=== PATIENT | male | born 1945 | race Caucasian/White ===

== ENCOUNTER 2017-08-28 14:31 | Observation (INO) ==
[2017-08-28] MEDS ORDERED: 0.9 % Sodium Chloride 1,000 ML IVC ONE ×2 (14:53→15:30)
--- NOTE | 2017-08-28 14:53 | Emergency Department Note ---
Disposition Clinical Impression: Orthostatic hypotension, Renal insufficiency, Hypokalemia Syncopal episodes Qualifiers: Syncope type: unspecified Qualified Code(s): R55 - Syncope and collapse Disposition: Admitted As Inpatient Condition: Fair Time of Disposition: 17:17 General Adult HPI - General Chief complaint: ED General Medical Stated complaint: Hypotension Time Seen by Provider: 08/28/17 14:39 Source: patient, EMS Mode of arrival: EMS Limitations: no limitations Nursing Notes Reviewed: Yes Vital Signs Reviewed: Yes - History of Present Illness HPI Narrative: 71-year-old male history of hypertension presents an emergency department via EMS [facility] for [facility] and syncope. Patient states this morning prior to lunch he took his blood pressure medication. He was ready to eat lunch and next thing he knew he woke up to staff around him. He reports that they found his blood pressure was low and that he may have passed out. Reportedly he was caught and someone laid him down. He reportedly did not fall or strike his head. He has no obvious signs of trauma. He denies any pain at this time. He does feel low lightheaded but denies any dizziness. He denies any chest pain or shortness of breath. Denies history of cardiac ischemic disease. Denies any headache or neck pain. He takes 3 medications for his hypertension. Denies any recent changes to it. Lying to sitting up his blood pressure does drop. EMS reports when he was sat up he went unresponsive. [facility] a [facility] for his [facility], depression, and history of brain surgeries. Review of his medication list appears he takes amlodipine, hydralazine and lisinopril. Pain Scale: 0 - Related Data Allergies Allergy/AdvReac Type Severity Reaction Status Date / Time No Known Allergies Allergy Verified 08/28/17 14:37 All systems ED: reviewed and negative except as stated. Review of Systems: As Per HPI Constitutional: Denies: fever, chills, weakness ENT ED: Denies: congestion Cardiovascular: Denies: chest pain Respiratory: Denies: cough, dyspnea Gastrointestinal: Denies: abdominal pain, nausea, vomiting Genitourinary: Denies: urgency, dysuria Musculoskeletal: Denies: back pain, neck pain Neurological: Denies: headache, confusion, vertigo Past Medical History - Past Medical History Attestation: Yes The following information was validated with the patient. Source: patient, old records reviewed Medical history: Reports: hyperlipidemia, hypertension, other Psychiatric history: Reports: no psych history - Social History Smoking Status: Former smoker Alcohol use: Reports: none Drug use: Reports: none Physical Exam - General Limitations: no limitations General appearance: alert, in no apparent distress - Head Head exam: atraumatic, normocephalic, normal inspection - Eye Eye exam: Present: normal appearance, PERRL, EOMI. Absent: nystagmus - ENT ENT exam: normal exam, normal oropharynx, mucous membranes moist - Neck Neck exam: Present: normal inspection, full ROM, trachea midline. Absent: tenderness - Expanded Neck Exam Neck exam focused ED: Absent: midline tenderness - Chest Chest inspection: Present: normal inspection, symmetric chest wall rise - Respiratory Respiratory exam: Present: normal lung sounds bilaterally - Cardiovascular Cardiovascular exam: Present: normal rhythm, bradycardia, normal heart sounds, other (No murmurs with Valsalva). Absent: systolic murmur, diastolic murmur - Abdominal Exam Abdominal exam: Present: soft, Non-Tender, normal bowel sounds. Absent: tenderness, distention, guarding, rebound, rigidity, pulsatile mass - Extremities Exam Extremities exam: Present: normal inspection, full ROM, normal capillary refill. Absent: tenderness, pedal edema - Back Exam Back exam: Present: normal inspection, full ROM. Absent: tenderness, vertebral tenderness - Neurological Exam Neurological exam: Present: alert, oriented X3, CN II-XII intact - Expanded Neurological Exam Patient oriented to: Present: person, place, time Speech: Present: fluid speech Cranial nerves: EOM function (II, III, IV, ): Normal, facial sensation (V): Normal, facial palsy (VII): Normal, gag reflex (IX): Normal, spinal accessory function (XI): Normal, tongue deviation (XII): Normal Motor strength - LUE: 5/5 Motor strength - RUE: 5/5 Motor strength - LLE: 5/5 Motor strength - RLE: 5/5 Upper motor neuron exam: sharon neglect: Absent bilaterally, pronator drift: Absent bilaterally Sensory exam upper extremity: light touch: Normal Sensory exam lower extremity: light touch: Normal - Skin Skin exam: Present: warm, dry, intact, normal color. Absent: rash, cyanosis, diaphoresis Course Course Narrative: Patient presents hypotensive systolic anywhere from 60 to 80. He continues to be awake alert and oriented. Neurologic exam without any focal neural deficits. He denies any chest pain. EKG normal sinus rhythm with a prolonged OK interval as well as QTC. Patient will require full workup including a CT head and will get CT abdomen pelvis. Patient reports history of multiple surgeries in the head including coil. Will attempt to fluid resuscitated him as he appears to be responsive to position changes. Final disposition pending workup. - Reevaluation(s) Reevaluation #1: Spoke to the sister who is a power of rental sales representative. She provided some further history stating that patient has had 3 brain surgeries for tumors over 10 years ago. He has underlying dementia. [facility] for [facility]. The [facility] who takes care of the patient helps with his medications and there is no concern for medication error. Patient has otherwise been eating and drinking well. No history of any bleeding disorders. Parents had history of congestive heart failure she reports. No sudden deaths in the family. Review the patient' s labs shows a normal hemoglobin 12.9. His potassium is low at 2.9. Will replete his potassium here with 40 mEq. It appears patient takes supplementation at the [facility]. We will check and magnesium level as well. It appears he has some underlying renal insufficiency. Labs and records were obtained from the [facility] which did not provide any EKG or baseline creatinine. CT of the head was fairly unremarkable. There is some encephalomalacia from prior surgery Time: 16:29 Reevaluation #2: CT scan of the abdomen was fairly unremarkable. There is a lipoma that the patient has been are aware of for the past year. His magnesium came back 2.2. Patient feels significantly better after fluid hydration. His errand runner is now present in the room and states that a lpn private duty was with him talking to her when he slumped over and they were able to help him to the ground. [facility] was called. I was reaffirmed that no head trauma occurred. Again patient denies any headache or neck pain. He is feeling significantly better. He did report some lightheadedness when he stood up to avoid. Patient will require admission for further evaluation and workup for syncope and his orthostatic hypotension. He is being fluid responsive. Suspect possible dehydration component. Drapery Installer reports having 2 other residents brought in for dehydration. Will require further monitoring and management considering his EKG findings as well without prior cardiac history. Family and patient are in agreement with this plan. Time: 17:15 - Consultations Consultation #1: Spoke with on-call hospitalist samanta Guaman to admit for syncope and orthostatic hypotension possibly dehydration. No further orders at this time Time: 17:24 Vital Signs Temperature 98.9 F 08/28/17 14:37 Pulse Rate 53 08/28/17 14:37 Respiratory Rate 16 08/28/17 14:37 Blood Pressure 67/43 08/28/17 14:37 O2 Sat by Pulse Oximetry 96 08/28/17 14:37 Temperature 98.9 F 08/28/17 14:37 Pulse Rate 58 08/28/17 19:59 Respiratory Rate 18 08/28/17 19:59 Blood Pressure 103/56 08/28/17 19:59 O2 Sat by Pulse Oximetry 98 08/28/17 19:59 Oxygen Delivery Oxygen Delivery Nasal Cannula Medical Decision Making - MDM Narrative Medical decision making narrative: Patient was discussed with my attending physician who agrees with ED management and final disposition. They independently evaluated the patient. Please refer to their attestation to this encounter for additional information. This note was generated by [employer] voice recognition software and as a result grammatical or spelling errors may occur using this program. - Medical Records Medical records reviewed: Yes I reviewed the patient's medical records. - Lab Data Lab results reviewed: Yes I reviewed the patient's lab results. Result diagrams: 08/28/17 14:49 08/28/17 14:49 Lab Results 08/28/17 08/28/17 08/28/17 Range/Units 14:41 14:49 14:49 WBC 6.1 (4.3-11.1) K/mcL RBC 4.16 L (4.19-5.50) M/mcL Hgb 12.9 (12.9-16.9) g/dL Hct 36.5 L (37.5-50.1) % MCV 87.7 (83.0-100.0) fL MCH 31.0 (28.0-33.3) pg MCHC 35.3 (31.6-35.5) g/dL RDW 13.4 (11.5-14.5) % Plt Count 164 (140-400) K/mcL MPV 9.9 (9.4-12.4) fL Immature Gran % 0.3 (0-4) % Seg Neutrophils % 66.3 % Lymphocytes % 20.2 % Monocytes % 10.9 % Eosinophils % 1.6 % Basophils % 0.7 % Neutrophils # 4.1 (1.6-8.9) K/mcL Lymphocytes # 1.2 (0.6-4.6) K/mcL Monocytes # 0.7 (0.0-1.3) K/mcL Eosinophils # 0.1 (0.0-0.6) K/mcL Basophils # 0.0 (0.0-0.2) K/mcL Sodium 140 (136-145) mEq/L Potassium 2.9 L (3.5-5.1) mEq/L Chloride 104 (98-107) mEq/L Carbon Dioxide 29 (23-29) mEq/L BUN 19 (8-23) mg/dL Creatinine 1.54 H (0.70-1.30) mg/dL Est GFR ( Amer) 54 L (> 60) Est GFR (Non-Af Amer) 45 L (> 60) BUN/Creatinine Ratio 12 (6-26) Glucose 145 H (70-105) mg/dL POC Glucose 134 H (70-99) mg/dL Calculated Osmolality 295 (280-300) Lactic Acid (0.5-2.2) mmol/L Calcium 8.7 (8.6-10.3) mg/dL Magnesium (1.6-2.6) mg/dL Troponin I 0.03 (< 0.04) ng/mL Urine Color (Yellow) Urine Clarity (Clear) Urine pH (5.0-8.0) pH Units Ur Specific [place] (1.010-1.025) Urine Protein (Neg-Trace) mg/dL Urine Glucose (UA) (Normal) mg/dL Urine Ketones (Negative) mg/dL Urine Blood (Negative) Urine Nitrite (Negative) Urine Bilirubin (Negative) Urine Urobilinogen (Normal) mg/dL Ur Leukocyte Esterase (Negative) Urine Microscopic RBC (0-3) per hpf Urine Microscopic WBC (0-3) per hpf Ur Squamous Epith Cells (None-Few) per lpf Urine Bacteria (None-Few) per hpf Hyaline Casts (None-Few) per lpf Ur Culture Indicated? (NO) 08/28/17 08/28/17 08/28/17 Range/Units 16:13 16:13 16:55 WBC (4.3-11.1) K/mcL RBC (4.19-5.50) M/mcL Hgb (12.9-16.9) g/dL Hct (37.5-50.1) % MCV (83.0-100.0) fL MCH (28.0-33.3) pg MCHC (31.6-35.5) g/dL RDW (11.5-14.5) % Plt Count (140-400) K/mcL MPV (9.4-12.4) fL Immature Gran % (0-4) % Seg Neutrophils % % Lymphocytes % % Monocytes % % Eosinophils % % Basophils % % Neutrophils # (1.6-8.9) K/mcL Lymphocytes # (0.6-4.6) K/mcL Monocytes # (0.0-1.3) K/mcL Eosinophils # (0.0-0.6) K/mcL Basophils # (0.0-0.2) K/mcL Sodium (136-145) mEq/L Potassium (3.5-5.1) mEq/L Chloride (98-107) mEq/L Carbon Dioxide (23-29) mEq/L BUN (8-23) mg/dL Creatinine (0.70-1.30) mg/dL Est GFR ( Amer) (> 60) Est GFR (Non-Af Amer) (> 60) BUN/Creatinine Ratio (6-26) Glucose (70-105) mg/dL POC Glucose (70-99) mg/dL Calculated Osmolality (280-300) Lactic Acid 1.8 (0.5-2.2) mmol/L Calcium (8.6-10.3) mg/dL Magnesium 2.2 (1.6-2.6) mg/dL Troponin I (< 0.04) ng/mL Urine Color Dark Yellow (Yellow) Urine Clarity Slightly Hazy (Clear) Urine pH 6.5 (5.0-8.0) pH Units Ur Specific [place] 1.019 (1.010-1.025) Urine Protein 100 H (Neg-Trace) mg/dL Urine Glucose (UA) 100 H (Normal) mg/dL Urine Ketones Trace H (Negative) mg/dL Urine Blood Negative (Negative) Urine Nitrite Negative (Negative) Urine Bilirubin Small H (Negative) Urine Urobilinogen Normal (Normal) mg/dL Ur Leukocyte Esterase Large H (Negative) Urine Microscopic RBC 0-3 (0-3) per hpf Urine Microscopic WBC 30-50 H (0-3) per hpf Ur Squamous Epith Cells Few (None-Few) per lpf Urine Bacteria None Seen (None-Few) per hpf Hyaline Casts Few (None-Few) per lpf Ur Culture Indicated? YES A (NO) - Radiology Data Radiology results reviewed: Yes I reviewed the patient's radiology results. Chest X-Ray 08/28/17 14:40 IMPRESSION: No acute process. D/ / Arian Boyle MD / Arian Boyle MD Interpreting Provider: Arian Boyle MD Abdomen/Pelvis CT 08/28/17 15:30 IMPRESSION: 1. Enlarged prostate gland with a thickened bladder wall. This could be related to chronic outlet obstruction. 2. Atherosclerotic disease. 3. There is a 2.7 x 2.3 cm low-attenuation lesion in the right lobe of the liver. This has benign imaging features and no follow-up imaging is required. 4. 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 D/ / 08/28/2017 16:38:46 Jaime Jacobson MD / karthik Interpreting Provider: Jaime Jacobson MD Head CT 08/28/17 15:30 IMPRESSION: 1. No acute intracranial abnormality. 2. Mild age-appropriate diffuse atrophy with mild chronic small vessel ischemic changes. 3. Encephalomalacia in the right frontal lobe likely related to prior surgery given an overlying craniotomy. D/ / Rogelio Chester MD / Rogelio Chester MD Interpreting Provider: Rogelio Chester MD - EKG Data EKG #1 EKG attestation: Yes I reviewed and interpreted this EKG. EKG results narrative: EKG performed 1442 sinus bradycardia 57 bpm, Q waves in lead 3, OK interval 206 , no ST elevation or depression, QT QTC 476 471. There is no old EKG available for comparison at this time. No signs of Brugada pattern, delta waves or LVH. The QT interval is prolonged. Patient is on multiple antidepressant medications. Attestation Statement - Attestation Attestation: I, Casey Bledsoe DO, examined this patient [id number] and my medical decision-making was reviewed with Franky Saavedra DO , Resident Physician. I agree with the documented findings, disposition and treatment plan as described except to the extent set forth below. Please see my progress notes for details.
[2017-08-28 15:03] LABS: Basophils % 0.7 %; Eosinophils # 0.1 K/mcL (0.0-0.6); Eosinophils % 1.6 %; Hematocrit 36.5 % (37.5-50.1); Hemoglobin 12.9 g/dL (12.9-16.9); Immature Granulocytes % 0.3 % (0-4); Lymphocytes # 1.2 K/mcL (0.6-4.6); Lymphocytes % 20.2 %; Mean Corpuscular HGB Conc 35.3 g/dL (31.6-35.5); Mean Corpuscular Volume 87.7 fL (83.0-100.0); Mean Platelet Volume 9.9 fL (9.4-12.4); Monocytes # 0.7 K/mcL (0.0-1.3); Monocytes % 10.9 %; Neutrophils # 4.1 K/mcL (1.6-8.9); Platelet Count 164 K/mcL (140-400); Red Blood Count 4.16 M/mcL (4.19-5.50); Red Cell Distribution Width 13.4 % (11.5-14.5); Segmented Neutrophils % 66.3 %
[2017-08-28 15:29] LABS: Calcium 8.7 mg/dL (8.6-10.3); Potassium 2.9 mEq/L (3.5-5.1); Troponin I 0.03 ng/mL (< 0.04)
--- NOTE | 2017-08-28 15:47 | Emergency Department Note ---
Disposition Clinical Impression: Orthostatic hypotension Syncopal episodes Qualifiers: Syncope type: unspecified Qualified Code(s): R55 - Syncope and collapse Disposition: Admitted As Inpatient Condition: Fair [facility]Primary Care Provider[facility] - Forms: ED Satisfaction Letter, Work/School Release Time of Disposition: 17:28 General Adult HPI - General Chief complaint: ED General Medical Stated complaint: Hypotension Time Seen by Provider: 08/28/17 14:39 Source: patient, EMS Mode of arrival: EMS Limitations: no limitations - History of Present Illness Pain Scale: 0 - Related Data Allergies Allergy/AdvReac Type Severity Reaction Status Date / Time No Known Allergies Allergy Verified 08/28/17 14:37 Constitutional: Denies: fever, chills, weakness ENT ED: Denies: congestion Cardiovascular: Denies: chest pain Respiratory: Denies: cough, dyspnea Gastrointestinal: Denies: abdominal pain, nausea, vomiting Genitourinary: Denies: urgency, dysuria Musculoskeletal: Denies: back pain, neck pain Neurological: Denies: headache, confusion, vertigo Past Medical History - Past Medical History Medical history: Reports: hyperlipidemia, hypertension, other Psychiatric history: Reports: no psych history - Social History Smoking Status: Former smoker Alcohol use: Reports: none Drug use: Reports: none Physical Exam - General Limitations: no limitations General appearance: alert, in no apparent distress Course Vital Signs Temperature 98.9 F 08/28/17 14:37 Pulse Rate 53 08/28/17 14:37 Respiratory Rate 16 08/28/17 14:37 Blood Pressure 67/43 08/28/17 14:37 O2 Sat by Pulse Oximetry 96 08/28/17 14:37 Temperature 98.9 F 08/28/17 14:37 Pulse Rate 81 08/28/17 16:46 Respiratory Rate 14 08/28/17 16:46 Blood Pressure 122/74 08/28/17 16:46 O2 Sat by Pulse Oximetry 99 08/28/17 16:46 Oxygen Delivery Oxygen Delivery Nasal Cannula Medical Decision Making - Lab Data Result diagrams: 08/28/17 14:49 08/28/17 14:49 Lab Results 08/28/17 08/28/17 08/28/17 Range/Units 14:41 14:49 14:49 WBC 6.1 (4.3-11.1) K/mcL RBC 4.16 L (4.19-5.50) M/mcL Hgb 12.9 (12.9-16.9) g/dL Hct 36.5 L (37.5-50.1) % MCV 87.7 (83.0-100.0) fL MCH 31.0 (28.0-33.3) pg MCHC 35.3 (31.6-35.5) g/dL RDW 13.4 (11.5-14.5) % Plt Count 164 (140-400) K/mcL MPV 9.9 (9.4-12.4) fL Immature Gran % 0.3 (0-4) % Seg Neutrophils % 66.3 % Lymphocytes % 20.2 % Monocytes % 10.9 % Eosinophils % 1.6 % Basophils % 0.7 % Neutrophils # 4.1 (1.6-8.9) K/mcL Lymphocytes # 1.2 (0.6-4.6) K/mcL Monocytes # 0.7 (0.0-1.3) K/mcL Eosinophils # 0.1 (0.0-0.6) K/mcL Basophils # 0.0 (0.0-0.2) K/mcL Sodium 140 (136-145) mEq/L Potassium 2.9 L (3.5-5.1) mEq/L Chloride 104 (98-107) mEq/L Carbon Dioxide 29 (23-29) mEq/L BUN 19 (8-23) mg/dL Creatinine 1.54 H (0.70-1.30) mg/dL Est GFR ( Amer) 54 L (> 60) Est GFR (Non-Af Amer) 45 L (> 60) BUN/Creatinine Ratio 12 (6-26) Glucose 145 H (70-105) mg/dL POC Glucose 134 H (70-99) mg/dL Calculated Osmolality 295 (280-300) Lactic Acid (0.5-2.2) mmol/L Calcium 8.7 (8.6-10.3) mg/dL Magnesium (1.6-2.6) mg/dL Troponin I 0.03 (< 0.04) ng/mL Urine Color (Yellow) Urine Clarity (Clear) Urine pH (5.0-8.0) pH Units Ur Specific [place] (1.010-1.025) Urine Protein (Neg-Trace) mg/dL Urine Glucose (UA) (Normal) mg/dL Urine Ketones (Negative) mg/dL Urine Blood (Negative) Urine Nitrite (Negative) Urine Bilirubin (Negative) Urine Urobilinogen (Normal) mg/dL Ur Leukocyte Esterase (Negative) Urine Microscopic RBC (0-3) per hpf Urine Microscopic WBC (0-3) per hpf Ur Squamous Epith Cells (None-Few) per lpf Urine Bacteria (None-Few) per hpf Hyaline Casts (None-Few) per lpf Ur Culture Indicated? (NO) 08/28/17 08/28/17 08/28/17 Range/Units 16:13 16:13 16:55 WBC (4.3-11.1) K/mcL RBC (4.19-5.50) M/mcL Hgb (12.9-16.9) g/dL Hct (37.5-50.1) % MCV (83.0-100.0) fL MCH (28.0-33.3) pg MCHC (31.6-35.5) g/dL RDW (11.5-14.5) % Plt Count (140-400) K/mcL MPV (9.4-12.4) fL Immature Gran % (0-4) % Seg Neutrophils % % Lymphocytes % % Monocytes % % Eosinophils % % Basophils % % Neutrophils # (1.6-8.9) K/mcL Lymphocytes # (0.6-4.6) K/mcL Monocytes # (0.0-1.3) K/mcL Eosinophils # (0.0-0.6) K/mcL Basophils # (0.0-0.2) K/mcL Sodium (136-145) mEq/L Potassium (3.5-5.1) mEq/L Chloride (98-107) mEq/L Carbon Dioxide (23-29) mEq/L BUN (8-23) mg/dL Creatinine (0.70-1.30) mg/dL Est GFR ( Amer) (> 60) Est GFR (Non-Af Amer) (> 60) BUN/Creatinine Ratio (6-26) Glucose (70-105) mg/dL POC Glucose (70-99) mg/dL Calculated Osmolality (280-300) Lactic Acid 1.8 (0.5-2.2) mmol/L Calcium (8.6-10.3) mg/dL Magnesium 2.2 (1.6-2.6) mg/dL Troponin I (< 0.04) ng/mL Urine Color Dark Yellow (Yellow) Urine Clarity Slightly Hazy (Clear) Urine pH 6.5 (5.0-8.0) pH Units Ur Specific [place] 1.019 (1.010-1.025) Urine Protein 100 H (Neg-Trace) mg/dL Urine Glucose (UA) 100 H (Normal) mg/dL Urine Ketones Trace H (Negative) mg/dL Urine Blood Negative (Negative) Urine Nitrite Negative (Negative) Urine Bilirubin Small H (Negative) Urine Urobilinogen Normal (Normal) mg/dL Ur Leukocyte Esterase Large H (Negative) Urine Microscopic RBC 0-3 (0-3) per hpf Urine Microscopic WBC 30-50 H (0-3) per hpf Ur Squamous Epith Cells Few (None-Few) per lpf Urine Bacteria None Seen (None-Few) per hpf Hyaline Casts Few (None-Few) per lpf Ur Culture Indicated? YES A (NO) Critical Care Time Critical Care Time: Yes Total Critical Care Time: 35 Attestation: Critical care performed: Time is exclusive of separately billable procedures. Time includes: direct patient care, patient reassessment, coordination of patient care, interpretation of data (laboratory data, radiology data, and respiratory data), review of patient's medical records, medical consultation and documentation of patient care. Procedures included in critical care time: Procedures excluded from critical care time: Attestation Statement - Attestation Attestation: I, Casey Bledsoe DO, examined this patient [id number] and my medical decision-making was reviewed with Franky Saavedra DO Resident Physician. I agree with the documented findings, disposition and treatment plan as described except to the extent set forth below. Please see my progress notes for details. 71-year-old male presents emergency room for evaluation of decreased responsiveness. EMS was called to the patient's [facility] [facility]. Patient was found at the kitchen table unresponsive. His blood pulses but his blood pressure was low. EMS can Accu-Chek 180 and a blood pressure of 65/35. Patient was placed on a cotton IV was obtained. Fluids were administered. Patient's blood pressure normalized to 106/95 and he started to wake up. Patient denied any fall or injury. Patient was found sitting in the chair. On arrival here to the emergency room is currently denying chest pain shortness of breath headache vision changes nausea vomiting or diarrhea. Denies any fevers or chills. Denies any recent falls or injury. 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 This was intracranial. On physical exam patient is resting comfortably in the bed is alert he is oriented he speaks in full sentences she does not appear to be in any distress. When he set the patient up abruptly he becomes very lightheaded and feels like he is going to pass out his blood pressure bottoms out and he becomes slightly somnolent. The patient is lying flat he has no symptoms. Bedside ultrasound was utilized to evaluate the aorta and the heart. Bedside cardiac evaluation was unremarkable. No signs of left ventricular strain or signs of deviation of the septum. Aorta was evaluated in 3 different positions 1 just below the xiphoid 1 just above the umbilicus and one below the umbilicus. There is no visible signs of dilation or aneurysmal presentation this time. Patient has no free fluid in the abdomen. Lungs are clear heart is regular abdomen is soft nontender nondistended no guarding no rigidity no peritoneal symptoms. 2 IVs were placed at this 0.2 L of fluid will be infused. Detailed workup including CBC chemistry urinalysis coagulation studies as well as CT that CT the abdomen chest x-ray and EKG will be resulted. Patient will require admission once full workup and treatment course are established and completed. Otherwise the patient is stable this point mentating appropriately his nausea is lying flat. Presentation is initially consistent with orthostasis. See detailed documentation of the physical exam, medical intervention, medical decision- making and disposition in the resident physician's note. 35 minutes of critical care applied the patient's treatment course at this time. 1700 Patient's labs reviewed. Hemoglobin is stable. Patient has low potassium at this time. This will be repleted by mouth. Patient has CT the head that is unremarkable for acute pathology as well as CT the abdomen and does not show any acute issues at this point. Patient's labs as well as vital signs have been stable throughout the treatment course. Patient was fluid responsive. No other acute issues noted during this evaluation of this time except for what appears to be orthostasis causing hypotension and syncopal event. Patient will be admitted for further evaluation and management and disposition to be determined after hospital observation is completed. Patient is otherwise stable. 1736 Patient was accepted by the hospitalist. No other recommendations or concerns. Patient is more stable at this point feeling more able to stand on his own and sit upright without any dizziness or symptoms. Admission process will be completed at this time for what appears to be orthostasis causing syncope and hypotension
[2017-08-28] MEDS ORDERED: Pantoprazole 40 MG VIAL IVP ONE (16:12)
[2017-08-28] MEDS ORDERED: Pantoprazole 40 MG in 0.9 % Sodium Chloride Mini Bag 100 ML IVC SCH (16:15)
[2017-08-28 17:04] LABS: Bilirubin,Urine Small (Negative); Blood,Urine Negative (Negative); Color,Urine Dark Yellow (Yellow); Glucose,Urine (UA) 100 mg/dL (Normal); Ketones,Urine Trace mg/dL (Negative); Leukocyte Esterase,Urine Large (Negative); Nitrite,Urine Negative (Negative); PH,Urine 6.5 pH Units (5.0-8.0); Protein,Urine 100 mg/dL (Neg-Trace); Specific Gravity,Urine 1.019 (1.010-1.025); Urobilinogen,Urine Normal (Normal)
[2017-08-28 17:06] LABS: Bacteria,Urine None Seen per hpf (None-Few)
[2017-08-28 17:07] LABS: Clarity,Urine Slightly Hazy (Clear)
[2017-08-28 17:21] LABS: Hyaline Casts,Urine Few per lpf (None-Few); Squamous Epithelial Cell,Urine Few per lpf (None-Few)
[2017-08-28 17:22] LABS: RBC,Urine 0-3 per hpf (0-3)
[2017-08-28 17:23] LABS: WBC,Urine 30-50 per hpf (0-3)
[2017-08-28] MEDS ORDERED: Ipratropium/Albuterol Neb 3 ML IH PRN (17:50)
[2017-08-28] MEDS ORDERED: *HR* LORazepam 0.5 MG TABLET PO PRN (17:52)
[2017-08-28] MEDS ORDERED: Naloxone 0.4 MG/ML INJ IVP PRN (17:53)
[2017-08-28] MEDS ORDERED: *HR* HYDROcodone/Acet 5/325 mg TABLET PO PRN (17:53)
[2017-08-28] MEDS ORDERED: Acetaminophen 325 MG TABLET PO PRN (17:53)
--- NOTE | 2017-08-28 17:58 | Internal Med History&Physical ---
Date of Encounter: 08/28/17 Time of Encounter: 17:56 Internal Medicine - H&P: HPI Chief complaint: Syncope Admitted From: Emergency Dept History of present illness: Mr. Aguilar is a 71 year old male with a past medical history of hypertension, hyperlipidemia, craniectomy, chronic kidney disease stage III and dementia who was brought to the hospital after having a witnessed syncopal episode, but the patient was out for 20 minutes, he does not remember what happened, his blood pressure was in the low 60s and improved to the 120s after receiving fluids. His potassium was found to be low at 2.9 creatinine is 1.54 and has a baseline of 1.23, appears dehydrated, glucose is 145, the UA is positive for 50 white blood cells in the CT scan of the abdomen shows an enlarged prostate with thickening of the bladder wall compatible with cystitis, liver lesion likely benign and a gastric lipoma. CT scan shows no acute findings and showed right frontal encephalomalacia. 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, dementia, chronic kidney disease of stage III, gout, anxiety) Additional medical history: unable to state Psychiatric history: no psych history - Past Surgical History Surgical History: other (Craniectomy, pilonidal cyst excision) - Social History Smoking Status: Never smoker Alcohol use: none Drug use: none - Additional Family History Additional family history: Mother and father with CHF Internal Medicine - H&P: Meds 3 Allergy/AdvReac Type Severity Reaction Status Date / Time No Known Allergies Allergy Verified 08/28/17 14:37 All Systems PM: A 10-system review of systems was performed and is negative for pertinent findings except as documented above in the HPI. Review of systems: , Feels weak, other systems out of the 10 reviewed were negative - Constitutional Vitals: Temp Pulse Resp BP Pulse Ox 98.9 F 81 14 122/74 99 08/28/17 14:37 08/28/17 16:46 08/28/17 16:46 08/28/17 16:46 08/28/17 16:46 General appearance: Present: A&O X 3 (Forgetful at times) - Head Head exam: Present: atraumatic, normocephalic - Eye Eye exam: Present: PERRL, conjuntiva pink, sclera anicteric Pupils: Present: PERRL - Neck Neck exam general surgery: Present: supple, trachea midline. Absent: lymphadenopathy - Respiratory Respiratory exam: Present: decreased breath sounds, CTAB. Absent: accessory muscle use, rales, rhonchi, wheezes - Cardiovascular Cardiovascular exam: Present: RRR, +S1, +S2. Absent: diastolic murmur, gallop, rubs, systolic murmur - GI/Abdominal GI/Abdominal exam: Present: distended, normal bowel sounds, soft, no peritoneal signs. Absent: tenderness - Extremities Exam Extremities exam: Present: warm, radial pulses palpable and symmetrical. Absent : calf tenderness, cyanotic, pedal edema - Neurological Exam Neurological exam: Present: CN II-XII intact, oriented X3, no focal deficits. Absent: pronater drift, facial droop, speech deficit - Skin Skin exam: Present: dry, intact Internal Med - H&P Results - Labs CBC & Chem 7: 08/28/17 14:49 08/28/17 14:49 Labs: Short CBC 08/28/17 Range/Units 14:49 WBC 6.1 (4.3-11.1) K/mcL Hgb 12.9 (12.9-16.9) g/dL Hct 36.5 L (37.5-50.1) % Plt Count 164 (140-400) K/mcL Neutrophils # 4.1 (1.6-8.9) K/mcL BMP 08/28/17 14:49 Sodium 140 Potassium 2.9 L Chloride 104 Carbon Dioxide 29 BUN 19 Creatinine 1.54 H Glucose 145 H Calcium 8.7 Cardiac Enzymes 08/28/17 Range/Units 14:49 Troponin I 0.03 (< 0.04) ng/mL Urine 08/28/17 Range/Units 16:55 Urine Color Dark Yellow (Yellow) Urine Clarity Slightly Hazy (Clear) Urine pH 6.5 (5.0-8.0) pH Units Ur Specific [place] 1.019 (1.010-1.025) Urine Protein 100 H (Neg-Trace) mg/dL Urine Glucose (UA) 100 H (Normal) mg/dL - Impressions ITS Impressions Chest X-Ray 08/28/17 14:40 IMPRESSION: No acute process. D/ / Arian Boyle MD / Arian Boyle MD Interpreting Provider: Arian Boyle MD Abdomen/Pelvis CT 08/28/17 15:30 IMPRESSION: 1. Enlarged prostate gland with a thickened bladder wall. This could be related to chronic outlet obstruction. 2. Atherosclerotic disease. 3. There is a 2.7 x 2.3 cm low-attenuation lesion in the right lobe of the liver. This has benign imaging features and no follow-up imaging is required. 4. 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 D/ / 08/28/2017 16:38:46 Jaime Jacobson MD / karthik Interpreting Provider: Jaime Jacobson MD Head CT 08/28/17 15:30 IMPRESSION: 1. No acute intracranial abnormality. 2. Mild age-appropriate diffuse atrophy with mild chronic small vessel ischemic changes. 3. Encephalomalacia in the right frontal lobe likely related to prior surgery given an overlying craniotomy. D/ / Rogelio Chester MD / Rogelio Chester MD Interpreting Provider: Rogelio Chester MD - Assessment and plan (1) Syncopal episodes Current Visit: Yes Status: Acute Assessment and plan: Syncopal episode likely secondary to dehydration, possible orthostatic hypotension, also could be related to UTI Continue Rocephin, IV fluids Check orthostatics Fall precautions, telemetry, echocardiogram Hold lisinopril, hydralazine and amlodipine Omeprazole for GI prophylaxis and subcutaneous tenderness heparin for DVT prophylaxis. The patient will be admitted for observation. Full code. Time spent on this admission 40 minutes Qualifiers: Syncope type: unspecified Qualified Code(s): R55 - Syncope and collapse (2) Chronic kidney disease, stage 3 Current Visit: Yes Status: Acute Assessment and plan: dehydration Continue (3) UTI (urinary tract infection) Current Visit: Yes Status: Acute Assessment and plan: Urine culture Qualifiers: Urinary tract infection type: acute cystitis Hematuria presence: without hematuria Qualified Code(s): N30.00 - Acute cystitis without hematuria (4) Dementia Current Visit: Yes Status: Acute Qualifiers: Dementia type: unspecified type Dementia behavioral disturbance: without behavioral disturbance Qualified Code(s): F03.90 - Unspecified dementia without behavioral disturbance (5) Hypotension Current Visit: Yes Status: Acute Qualifiers: Hypotension type: unspecified hypotension type Qualified Code(s): I95.9 - Hypotension, unspecified (6) Hypokalemia Current Visit: Yes Status: Acute Assessment and plan: Replete as needed (7) Orthostatic hypotension Current Visit: Yes Status: Acute Assessment and plan: Possible orthostatic hypotension - Time Spent With Patient Total time spent is greater than 50% in coordination of care (as documented) at patient's floor/unit and/or counseling patient:
[2017-08-28] MEDS: *HR* Heparin 5,000 UNIT/ML VIAL SQ SCH (20:48)
[2017-08-28] MEDS: cefTRIAXone 1,000 MG in Water for inj. (sterile) 20 ML 10 ML IVP SCH (20:48)
[2017-08-29] MEDS: *HR* Heparin 5,000 UNIT/ML VIAL SQ SCH ×3 (05:35→20:38)
[2017-08-29] MEDS ORDERED: hydrALAZINE 25 MG TABLET PO SCH (06:00)
[2017-08-29] MEDS ORDERED: hydrALAZINE 25 MG TABLET PO PRN (06:07)
[2017-08-29 07:54] LABS: BUN/Creatinine Ratio 15 (6-26); Blood Urea Nitrogen 17 mg/dL (8-23); Calcium 8.7 mg/dL (8.6-10.3); Carbon Dioxide 30 mEq/L (23-29); Chloride 111 mEq/L (98-107); Chol/HDL Ratio 4.9 (0-4.9); Cholesterol 137 mg/dL (< 200); Glucose 86 mg/dL (70-105); HDL Cholesterol 28 mg/dL (40-59); LDL Cholesterol,Calculated 87 mg/dL (0-99); Osmolality,Calculated 303 (280-300); Sodium 146 mEq/L (136-145); Triglycerides 111 mg/dL (< 150); eGFR For African Americans > 60 (> 60); eGFR For Non-African Americans > 60 (> 60)
[2017-08-29 08:04] LABS: Hematocrit 39.6 % (37.5-50.1); Hemoglobin 13.5 g/dL (12.9-16.9); Mean Corpuscular HGB Conc 34.1 g/dL (31.6-35.5); Mean Corpuscular Hemoglobin 30.3 pg (28.0-33.3); Mean Platelet Volume 10.5 fL (9.4-12.4); Platelet Count 150 K/mcL (140-400); Red Blood Count 4.45 M/mcL (4.19-5.50); Red Cell Distribution Width 13.8 % (11.5-14.5)
[2017-08-29] MEDS ORDERED: Aspirin Enteric Coated 81 MG Tablet PO SCH (09:00)
[2017-08-29] MEDS ORDERED: LORAZEPAM 0.5 MG PO SCH (09:00)
[2017-08-29] MEDS: amLODIPine 5 MG TABLET PO SCH (09:30)
[2017-08-29] MEDS: traZODone 50 MG TABLET PO SCH ×2 (09:30→20:37)
[2017-08-29] MEDS: Aspirin Enteric Coated 81 MG Tablet PO SCH (09:31)
[2017-08-29] MEDS: Lisinopril 20 MG TABLET PO SCH (09:31)
[2017-08-29] MEDS: cefTRIAXone 1,000 MG in Water for inj. (sterile) 20 ML 10 ML IVP SCH (09:31)
[2017-08-29] MEDS: Tetrahydrozoline 15 ML BOTTLE BOTH EYES SCH ×4 (09:33→20:53)
--- NOTE | 2017-08-29 15:12 | Internal Med Progress Note ---
Date of Encounter: 08/29/17 Time of Encounter: 09:25 - Assessment and plan (1) Syncopal episodes Current Visit: Yes Status: Acute Assessment and plan: Syncopal episode likely secondary to dehydration, possible orthostatic hypotension, also could be related to UTI. Continue Rocephin, IV fluids. Fall precautions and supportive care. Transthoracic echocardiogram showed preserved EF, asymmetric basal septal hypertrophy, no LV outlet obstruction, mild diastolic dysfunction. Telemetry monitoring remained uneventful. Patient's blood pressure is improved and is elevated, resume home medications. Qualifiers: Syncope type: unspecified Qualified Code(s): R55 - Syncope and collapse (2) Orthostatic hypotension Current Visit: Yes Status: Acute Assessment and plan: Possible orthostatic hypotension (3) Hypokalemia Current Visit: Yes Status: Acute Assessment and plan: Serum potassium slightly improved at 3. Magnesium noted to be normal. Supplement with oral potassium chloride. (4) Chronic kidney disease, stage 3 Current Visit: Yes Status: Acute Assessment and plan: Admitted with acute kidney injury on underlying chronic kidney disease, likely due to dehydration. Serum creatinine is much improved with IV hydration, at 1.13 today. (5) UTI (urinary tract infection) Current Visit: Yes Status: Acute Assessment and plan: Urinalysis suggestive of infection, follow-up urine culture. Continue IV Rocephin. Qualifiers: Urinary tract infection type: acute cystitis Hematuria presence: without hematuria Qualified Code(s): N30.00 - Acute cystitis without hematuria (6) Dementia Current Visit: Yes Status: Chronic Qualifiers: Dementia type: unspecified type Dementia behavioral disturbance: without behavioral disturbance Qualified Code(s): F03.90 - Unspecified dementia without behavioral disturbance (7) Hypotension Current Visit: Yes Status: Resolved Qualifiers: Hypotension type: unspecified hypotension type Qualified Code(s): I95.9 - Hypotension, unspecified - Time Spent With Patient Total time spent is greater than 50% in coordination of care (as documented) at patient's floor/unit and/or counseling patient: - Subjective Interval history: Reports feeling well. Denies chest pain, shortness of breath, palpitations, nausea, vomiting. He also reports multiple episodes of unexplained syncope in the past. - Constitutional Vitals: Temp Pulse Resp BP Pulse Ox 97.7 F 61 18 155/85 99 08/29/17 11:21 08/29/17 11:21 08/29/17 11:21 08/29/17 11:21 08/29/17 11:21 General appearance: Present: A&O X 3, answers questions appropriately - Respiratory Respiratory exam: Present: CTAB. Absent: accessory muscle use, rales, rhonchi, wheezes - Cardiovascular Cardiovascular exam: Present: RRR, +S1, +S2. Absent: diastolic murmur, gallop, rubs, systolic murmur - GI/Abdominal GI/Abdominal exam: Present: normal bowel sounds, soft, no peritoneal signs. Absent: distended, tenderness - Extremities Exam Extremities exam: Present: full ROM, warm, radial pulses palpable and symmetrical. Absent: calf tenderness, cyanotic, pedal edema - Neurological Exam Neurological exam: Present: CN II-XII intact, oriented X3, no focal deficits. Absent: pronater drift, facial droop, speech deficit Internal Medicine: Result - Labs CBC & Chem 7: 08/29/17 06:53 08/29/17 06:53 Labs: Short CBC 08/29/17 Range/Units 06:53 WBC 6.5 (4.3-11.1) K/mcL Hgb 13.5 (12.9-16.9) g/dL Hct 39.6 (37.5-50.1) % Plt Count 150 (140-400) K/mcL BMP 08/29/17 06:53 Sodium 146 H Potassium 3.0 L Chloride 111 H Carbon Dioxide 30 H BUN 17 Creatinine 1.13 Glucose 86 Calcium 8.7 - Impressions Impressions Echocardiogram 08/29/17 17:56 Impressions: LVEF 60%. Asymmetric basal septal hypertrophy. No LVOTO. Mild left ventricular diastolic dysfunction. Normal right ventricular structure and function. No pulmonary hypertension. Left Ventricular Wall Motion: Rest Echo Findings All wall segments showed normal motion. Findings: Study Quality * Technically adequate exam. ECG Findings * Normal sinus rhythm. Left Ventricle * LVEF 60%. * Asymmetric basal septal hypertrophy. No LVOTO. * Mild left ventricular diastolic dysfunction. * Normal LV chamber size. Right Ventricle * Normal right ventricular structure and function. Left Atrium * Normal left atrial size. Right Atrium * Normal right atrial size. Mitral Valve * Normal mitral valve structure. * No mitral stenosis. * No mitral regurgitation. * Mild mitral annular calcification Aortic Valve * No aortic regurgitation. * Trileaflet aortic valve. * No aortic stenosis. Tricuspid Valve * Tricuspid valve not well visualized. * No tricuspid regurgitation. * Estimated RA pressure is 3 mmHg. * Estimated RVSP is 25 mmHg. * No pulmonary hypertension. Pulmonic Valve * Pulmonic valve is not well visualized. * No pulmonic stenosis. * Trace pulmonic regurgitation. Pulmonary Artery * Pulmonary artery not well visualized. Aorta * Normally sized aortic root. Pericardium * There is no pericardial effusion present. Interatrial Septum * No evidence of PFO by color Doppler. IVC * Normal IVC dimensions and inspiratory collapse. Consult Discharge Plan - Plan [facility]errals: [facility] [Primary Care Provider] -
[2017-08-30 05:39] LABS: BUN/Creatinine Ratio 17 (6-26); Blood Urea Nitrogen 18 mg/dL (8-23); Calcium 9.2 mg/dL (8.6-10.3); Carbon Dioxide 31 mEq/L (23-29); Chloride 106 mEq/L (98-107); Glucose 86 mg/dL (70-105); Magnesium 1.9 mg/dL (1.6-2.6); Osmolality,Calculated 299 (280-300); Potassium 3.1 mEq/L (3.5-5.1); Sodium 144 mEq/L (136-145); eGFR For African Americans > 60 (> 60); eGFR For Non-African Americans > 60 (> 60)
[2017-08-30] MEDS: *HR* Heparin 5,000 UNIT/ML VIAL SQ SCH (06:24)
[2017-08-30 07:28] VITALS: BP 155/94
[2017-08-30] MEDS ORDERED: Potassium Chloride Elixir 20 MEQ/15 ML UDC PO SCH (09:00)
[2017-08-30] MEDS: cefTRIAXone 1,000 MG in Water for inj. (sterile) 20 ML 10 ML IVP SCH (10:59)
[2017-08-30] MEDS: traZODone 50 MG TABLET PO SCH (11:00)
[2017-08-30] MEDS: amLODIPine 5 MG TABLET PO SCH (11:00)
[2017-08-30] MEDS: Lisinopril 20 MG TABLET PO SCH (11:00)
[2017-08-30] MEDS: Aspirin Enteric Coated 81 MG Tablet PO SCH (11:00)
[2017-08-30] MEDS: Tetrahydrozoline 15 ML BOTTLE BOTH EYES SCH (11:01)
--- NOTE | 2017-08-30 11:59 | Discharge Summary ---
- NOTES TO OUTPATIENT PROVIDER Notes to Outpatient Provider: Syncope, likely dehydration and possible UTI; hypokalemia, monitor K Date of Encounter: 08/30/17 Time of Encounter: 10:00 - Discharge Diagnosis (1) Syncopal episodes Priority: Primary Status: Acute Qualifiers: Syncope type: unspecified Qualified Code(s): R55 - Syncope and collapse (2) Orthostatic hypotension Priority: Primary Status: Suspected (3) Hypokalemia Priority: Primary Status: Acute (4) UTI (urinary tract infection) Priority: Primary Status: Suspected Qualifiers: Urinary tract infection type: acute cystitis Hematuria presence: without hematuria Qualified Code(s): N30.00 - Acute cystitis without hematuria (5) Dementia Priority: Secondary Status: Chronic Qualifiers: Dementia type: unspecified type Dementia behavioral disturbance: without behavioral disturbance Qualified Code(s): F03.90 - Unspecified dementia without behavioral disturbance (6) Essential hypertension Priority: Secondary Status: Chronic Hospital course: Mr. Aguilar is a 71 year old male with the above medical problems, who was admitted with syncope and reports that he has had multiple syncopal episodes in the past. Patient was noted to have mild hypotension , suspected UTI and acute kidney injury at Admission. He was started on IV hydration and IV Rocephin, antihypertensives were initially held. Patient's blood pressure gradually increased and BP meds resumed. He was completely asymptomatic since admission. Telemetry monitoring showed no acute events. Echocardiogram showed preserved ejection fraction, mild diastolic dysfunction, asymmetric basal septal hypertrophy with no LV outlet obstruction. Urine culture was noted to be mixed jian. Physical and occupational therapy evaluation recommended home health services. Patient is currently medically stable for discharge. Discharge discussed with: patient, nurse - Time Spent with Patient Total time spent providing and/or coordinating discharge services: Greater than 30 minutes (40 min) - Discharge Medications Prescriptions: Cefdinir [Omnicef] 300 mg PO BID #6 capsule Home Medications: Amlodipine Besylate 10 mg PO DAILY 08/28/17 [History] Aspirin [Adult Aspirin Regimen] 81 mg PO DAILY 08/28/17 [History] Atorvastatin [Lipitor] 80 mg PO HS 08/28/17 [History] Docusate Sodium [Stool Softener] 100 mg PO BID 08/28/17 [History] LORazepam [Lorazepam] 0.5 mg PO TID 08/28/17 [History] Lisinopril [Zestril] 40 mg PO BID 08/28/17 [History] Peg 400/Hypromellose/Glycerin [Visine Tired Eye Relief Drop] 1 drop BOTH EYES QID 08/28/17 [History] Potassium Chloride [K-Tab ER] 20 meq PO BID 08/28/17 [History] Quetiapine Fumarate [Seroquel] 200 mg PO HS 08/28/17 [History] Sertraline [Zoloft] 200 mg PO DAILY 08/28/17 [History] hydrALAZINE [HydrALAZINE] 25 mg PO Q8HR 08/28/17 [History] traZODone [TraZODone] 25 mg PO AD 08/28/17 [History] Cefdinir [Omnicef] 300 mg PO BID #6 capsule 08/30/17 [Rx] Tamsulosin [Flomax] 0.4 mg PO HS 08/30/17 [History] Allergies/Adverse Reactions: 3 Allergy/AdvReac Type Severity Reaction Status Date / Time No Known Allergies Allergy Verified 08/28/17 14:37 Date of admission: 08/28/17 18:21 [facility] care physician: [facility] Consults: 08/28/17 23:34 Consult to Nutrition [CONS] Routine Comment: Consulting Provider: NUTRITION Reason for Dietary Consult: MST Score Consult to Staff [employer] Officer [CONS] Routine Reason for SW Consult: discharge planning Discharging clinician: Rachel Gant Anticipated date of discharge: 08/30/17 - Constitutional Vitals: Temp Pulse Resp BP Pulse Ox 97.6 F 61 18 155/94 93 08/30/17 07:23 08/30/17 07:23 08/30/17 07:23 08/30/17 07:23 08/30/17 07:23 General appearance: Present: A&O X 3, answers questions appropriately - Cardiovascular Cardiovascular exam: Present: RRR, +S1, +S2. Absent: diastolic murmur, gallop, rubs, systolic murmur - Patient Status Disposition: Home Health Service Condition: Fair Functional capacity at discharge: independent ambulation Overall status at discharge: patient is progressing back to baseline - Discharge Instructions Instructions: Cefdinir (By mouth), Syncope (DC) Follow [facility] With: [facility] [Primary Care Provider] - 09/02/17 1:30 pm - Diet and Activity Activity: as per physical therapy Diet: low fat, low cholesterol, low salt diet
--- NOTE | 2017-08-30 12:02 | Physician Discharge Referral ---
Home Health/Hosp Referral Info Transfer to: Home Health Attending Provider: Rachel Gant Provider in Charge Post Discharge: PCP - Diagnosis (1) Syncopal episodes Priority: Primary Status: Acute (2) Orthostatic hypotension Priority: Primary Status: Suspected (3) Hypokalemia Priority: Primary Status: Acute (4) UTI (urinary tract infection) Priority: Primary Status: Suspected (5) Dementia Priority: Secondary Status: Chronic (6) Essential hypertension Priority: Secondary Status: Chronic - Respiratory Orders Smoking Cessation: Smoking cessation has been advised. For more information, call the [place] [employer] Quit Line at 1-880-DUHN-NOW. - Diet/Nutrition Diet/Nutrition Orders: Cardiac - Activity Activity Orders: Ambulate - Services Needed Following services are medically necessary services: Nursing, Physical Therapy, Occupational Therapy - Transfer Medications Prescriptions: Cefdinir [Omnicef] 300 mg PO BID #6 capsule Home Medications: Amlodipine Besylate 10 mg PO DAILY 08/28/17 [History] Aspirin [Adult Aspirin Regimen] 81 mg PO DAILY 08/28/17 [History] Atorvastatin [Lipitor] 80 mg PO HS 08/28/17 [History] Docusate Sodium [Stool Softener] 100 mg PO BID 08/28/17 [History] LORazepam [Lorazepam] 0.5 mg PO TID 08/28/17 [History] Lisinopril [Zestril] 40 mg PO BID 08/28/17 [History] Peg 400/Hypromellose/Glycerin [Visine Tired Eye Relief Drop] 1 drop BOTH EYES QID 08/28/17 [History] Potassium Chloride [K-Tab ER] 20 meq PO BID 08/28/17 [History] Quetiapine Fumarate [Seroquel] 200 mg PO HS 08/28/17 [History] Sertraline [Zoloft] 200 mg PO DAILY 08/28/17 [History] hydrALAZINE [HydrALAZINE] 25 mg PO Q8HR 08/28/17 [History] traZODone [TraZODone] 25 mg PO AD 08/28/17 [History] Cefdinir [Omnicef] 300 mg PO BID #6 capsule 08/30/17 [Rx] Tamsulosin [Flomax] 0.4 mg PO HS 08/30/17 [History] Allergies/Adverse Reactions: 3 Allergy/AdvReac Type Severity Reaction Status Date / Time No Known Allergies Allergy Verified 08/28/17 14:37 Certification: Further, I certify that my clinical findings support that this patient is homebound (i.e. absences from home require considerable and taxing effort and are for medical reasons or protestant services or infrequently or short duration when for other reasons) because: Homebound Reason: Patient requires assistance of a person or device to safely leave home, Altered mental status requiring supervision when leaving home Attestation: My signature below is to certify that this patient is under my care and that I, or nurse practitioner, or a physician's assistant winemaker working with me, has a face-to -face encounter with this patient.
[2017-08-30] MEDS ORDERED: Potassium Chloride Elixir 20 MEQ/15 ML UDC PO ONE (16:30)
--- NOTE | 2017-08-31 16:41 | Electrocardiograph Report ---
[place] [id number] Test Date: 2017-08-28 Pat Name: Shekhar Aguilar Department: 102 Room: [facility] Gender: M Flare Maker: Dwaine : 1945 Requested By: Franky Saavedra Order Number: [id number] Reading MD: Kieran Smith Measurements Intervals [place] Rate: 57 P: 2 VA: 206 QRS: -1 QRSD: 116 T: 44 QT: 476 QTc: 471 Interpretive Statements SINUS BRADYCARDIA PROLONGED QT INTERVAL BASELINE ARTIFACT Electronically Signed On 08-31-2017 16:40:16 EDT by iKeran Smith
== END 2017-08-30 16:33 | disposition home health service (06) ==
LOC: EMEROO 14:31 → 2NENU 14:31 → SUATTDRO 18:21 → 2NENU 20:22
PROVIDERS: ADMIT Internal Medicine; ATTEND Internal Medicine

== ENCOUNTER 2021-10-23 17:11 | Inpatient (IN) ==
[2021-10-23 19:24] LABS: Basophils % 0.4 %; Eosinophils # 0.1 K/mcL (0.0-0.6); Eosinophils % 1.6 %; Hematocrit 38.4 % (37.5-50.1); Hemoglobin 12.9 g/dL (12.9-16.9); Immature Granulocytes % 0.2 % (0-4); Lymphocytes % 17.5 %; Mean Corpuscular HGB Conc 33.6 g/dL (31.6-35.5); Mean Corpuscular Hemoglobin 30.9 pg (28.0-33.3); Mean Corpuscular Volume 92.1 fL (83.0-100.0); Mean Platelet Volume 11.2 fL (9.4-12.4); Monocytes # 0.5 K/mcL (0.0-1.3); Monocytes % 8.2 %; Neutrophils # 4.1 K/mcL (1.6-8.9); Platelet Count 113 K/mcL (140-400); Red Blood Count 4.17 M/mcL (4.19-5.50); Red Cell Distribution Width 15.9 % (11.5-14.5); Segmented Neutrophils % 72.1 %; White Blood Count 5.7 K/mcL (4.3-11.1)
[2021-10-23 20:03] LABS: BUN/Creatinine Ratio 21 (6-26); Blood Urea Nitrogen 25 mg/dL (8-23); Calcium 8.6 mg/dL (8.6-10.3); Carbon Dioxide 29 mEq/L (23-29); Chloride 105 mEq/L (98-107); Ethanol < 10 mg/dL (Less than 10); Glucose 97 mg/dL (70-105); Osmolality,Calculated 296 (280-300); Potassium 2.9 mEq/L (3.5-5.1); Sodium 141 mEq/L (136-145); eGFR For African Americans > 60 (> 60); eGFR For Non-African Americans 58 (> 60)
[2021-10-23 20:18] LABS: Bacteria,Urine Few per hpf (None-Few); Bilirubin,Urine Negative (Negative); Blood,Urine Negative (Negative); Clarity,Urine Clear (Clear); Color,Urine Light-Yellow (Yellow); Glucose,Urine (UA) Normal (Normal); Hyaline Casts,Urine Few per lpf (None Seen); Ketones,Urine Negative (Negative); Leukocyte Esterase,Urine Trace (Negative); Mucus,Urine Few per lpf (None-Few); Nitrite,Urine Negative (Negative); PH,Urine 6.5 pH Units (5.0-8.0); Protein,Urine Trace mg/dL (Neg-Trace); RBC,Urine 0-3 per hpf (0-3); Specific Gravity,Urine 1.015 (1.010-1.025); Squamous Epithelial Cell,Urine Few per hpf (None-Few); WBC,Urine 0-3 per hpf (0-3)
[2021-10-23 20:26] LABS: Amphetamine Screen,Urine Negative ng/mL (Cutoff=1000); Barbiturate Screen,Urine Negative ng/mL (Cutoff=200); Benzodiazepines Screen,Urine Negative ng/mL (Cutoff=200); Cannabinoid Screen,Urine Negative ng/mL (Cutoff = 50); Cocaine Screen,Urine Negative ng/mL (Cutoff= 300); Opiate Screen,Urine Negative ng/mL (Cutoff=300); Phencyclidine Screen,Urine Negative ng/mL (Cutoff=25)
[2021-10-23] MEDS ORDERED: Lactulose Oral Soln 20 GM/30 ML UDC PO ONE (20:30)
[2021-10-23] MEDS ORDERED: Ondansetron 4 MG/2 ML VIAL IVP PRN (21:17)
[2021-10-23] MEDS ORDERED: Naloxone 0.4 MG/ML INJ IVP PRN (21:17)
[2021-10-23 22:06] LABS: Alanine Aminotransferase 44 Units/L (7-52); Albumin 3.3 g/dL (3.5-5.7); Alkaline Phosphatase 126 Units/L (34-104); Aspartate Amino Transferase 100 Units/L (13-39); Bilirubin,Direct 0.5 mg/dL (0.0-0.2); Bilirubin,Indirect 0.9 mg/dL (0.0-1.0); Bilirubin,Total 1.4 mg/dL (0.3-1.0); Globulin 3.3 g/dL (2.4-3.5); Total Protein 6.6 g/dL (6.4-8.9)
[2021-10-24] MEDS: 0.9 % Sodium Chloride 1,000 ML IVC SCH ×3 (00:28→20:35)
[2021-10-24 07:08] LABS: INR 1.5; Prothrombin Time 16.9 Seconds (9.4-12.1)
[2021-10-24 07:18] LABS: Alanine Aminotransferase 45 Units/L (7-52); Albumin 3.6 g/dL (3.5-5.7); Albumin/Globulin Ratio 1.1 (1.1-2.2); Alkaline Phosphatase 134 Units/L (34-104); Aspartate Amino Transferase 93 Units/L (13-39); BUN/Creatinine Ratio 20 (6-26); Bilirubin,Direct 0.4 mg/dL (0.0-0.2); Bilirubin,Indirect 1.2 mg/dL (0.0-1.0); Bilirubin,Total 1.6 mg/dL (0.3-1.0); Blood Urea Nitrogen 20 mg/dL (8-23); Calcium 8.8 mg/dL (8.6-10.3); Carbon Dioxide 27 mEq/L (23-29); Chloride 106 mEq/L (98-107); Globulin 3.3 g/dL (2.4-3.5); Glucose 77 mg/dL (70-105); Osmolality,Calculated 295 (280-300); Phosphorous 1.8 mg/dL (2.7-4.5); Potassium 3.3 mEq/L (3.5-5.1); Sodium 142 mEq/L (136-145); Total Protein 6.9 g/dL (6.4-8.9); eGFR For African Americans > 60 (> 60); eGFR For Non-African Americans > 60 (> 60)
[2021-10-24 07:29] LABS: Thyroid Stimulating Hormone 9.256 mcIU/mL (0.340-5.600)
[2021-10-24] MEDS ORDERED: Iopamidol - 370 500 ML MLS IVP ONE (08:30)
[2021-10-24] MEDS ORDERED: Potassium Phosphate 44 MEQ in 0.9 % Sodium Chloride 250 ML IVPB ONE (08:55)
[2021-10-24] MEDS ORDERED: amLODIPine 5 MG TABLET PO SCH (09:00)
[2021-10-24] MEDS: cefTRIAXone 1,000 MG in 0.9 % Sodium Chloride Mini Bag 100 ML IVPB SCH (10:27)
[2021-10-24] MEDS: Cholecalciferol (D-3) 1,000 UNIT (25MCG) TABLET PO SCH (10:31)
[2021-10-24] MEDS: Aspirin Enteric Coated 81 MG Tablet PO SCH (10:31)
[2021-10-24] MEDS: Finasteride 5 MG TABLET PO SCH (10:31)
[2021-10-24] MEDS ORDERED: Iopamidol - 370 500 ML MLS PO ONE (11:16)
[2021-10-24 18:04] LABS: RBC,Peritoneal Fluid < 2000 RBC/mcL
[2021-10-24 18:07] LABS: Appearance of Peritoneal Fl CLEAR (Clear)
[2021-10-24 18:20] LABS: Glucose,Peritoneal Fluid 89 mg/dL (No Ref Range); LDH,Peritoneal Fluid 56 Units/L (No Ref Range); Total Protein,Peritoneal Fluid < 2.0 g/dL
[2021-10-24 19:18] LABS: Basophils,Peritoneal Fluid 0 %; Eosinophils,Peritoneal Fluid 0 %
[2021-10-24] MEDS: Lactulose Oral Soln 20 GM/30 ML UDC PO SCH (20:29)
[2021-10-24] MEDS: QUEtiapine Fumarate 25 MG TABLET PO SCH (20:30)
[2021-10-25 03:19] LABS: BUN/Creatinine Ratio 18 (6-26); Blood Urea Nitrogen 20 mg/dL (8-23); Calcium 8.7 mg/dL (8.6-10.3); Carbon Dioxide 27 mEq/L (23-29); Chloride 109 mEq/L (98-107); Glucose 92 mg/dL (70-105); Osmolality,Calculated 296 (280-300); Sodium 142 mEq/L (136-145); eGFR For African Americans > 60 (> 60); eGFR For Non-African Americans > 60 (> 60)
[2021-10-25] MEDS: 0.9 % Sodium Chloride 1,000 ML IVC SCH (06:00)
[2021-10-25] MEDS: amLODIPine 5 MG TABLET PO SCH (08:32)
[2021-10-25] MEDS: Lactulose Oral Soln 20 GM/30 ML UDC PO SCH ×2 (08:33→20:44)
[2021-10-25] MEDS: cefTRIAXone 1,000 MG in 0.9 % Sodium Chloride Mini Bag 100 ML IVPB SCH (08:33)
[2021-10-25] MEDS: Finasteride 5 MG TABLET PO SCH (08:33)
[2021-10-25] MEDS: Aspirin Enteric Coated 81 MG Tablet PO SCH (08:33)
[2021-10-25] MEDS: Cholecalciferol (D-3) 1,000 UNIT (25MCG) TABLET PO SCH (08:33)
[2021-10-25] MEDS: QUEtiapine Fumarate 25 MG TABLET PO SCH (20:46)
[2021-10-26 01:37] LABS: Basophils % 0.3 %; Eosinophils # 0.2 K/mcL (0.0-0.6); Eosinophils % 2.7 %; Hematocrit 36.6 % (37.5-50.1); Hemoglobin 12.3 g/dL (12.9-16.9); Immature Granulocytes % 0.2 % (0-4); Lymphocytes # 1.4 K/mcL (0.6-4.6); Lymphocytes % 23.3 %; Mean Corpuscular HGB Conc 33.6 g/dL (31.6-35.5); Mean Corpuscular Hemoglobin 30.6 pg (28.0-33.3); Mean Platelet Volume 11.2 fL (9.4-12.4); Monocytes # 0.6 K/mcL (0.0-1.3); Monocytes % 10.2 %; Neutrophils # 3.8 K/mcL (1.6-8.9); Platelet Count 143 K/mcL (140-400); Red Blood Count 4.02 M/mcL (4.19-5.50); Red Cell Distribution Width 16.3 % (11.5-14.5); Segmented Neutrophils % 63.3 %
[2021-10-26 01:55] LABS: BUN/Creatinine Ratio 17 (6-26); Blood Urea Nitrogen 18 mg/dL (8-23); Calcium 8.7 mg/dL (8.6-10.3); Chloride 111 mEq/L (98-107); Glucose 87 mg/dL (70-105); Magnesium 1.9 mg/dL (1.6-2.6); Osmolality,Calculated 295 (280-300); Potassium 3.4 mEq/L (3.5-5.1); Sodium 142 mEq/L (136-145); eGFR For African Americans > 60 (> 60); eGFR For Non-African Americans > 60 (> 60)
[2021-10-26 02:33] LABS: Carbon Dioxide 25 mEq/L (23-29)
[2021-10-26] MEDS: cefTRIAXone 1,000 MG in 0.9 % Sodium Chloride Mini Bag 100 ML IVPB SCH (09:21)
[2021-10-26] MEDS: Finasteride 5 MG TABLET PO SCH (09:21)
[2021-10-26] MEDS: Cholecalciferol (D-3) 1,000 UNIT (25MCG) TABLET PO SCH (09:21)
[2021-10-26] MEDS: amLODIPine 5 MG TABLET PO SCH (09:22)
[2021-10-26] MEDS: Aspirin Enteric Coated 81 MG Tablet PO SCH (09:23)
[2021-10-26] MEDS: Lactulose Oral Soln 20 GM/30 ML UDC PO SCH ×2 (09:23→20:54)
[2021-10-26] MEDS: Potassium Chloride Elixir 20 MEQ/15 ML UDC PO SCH (10:18)
[2021-10-26] MEDS ORDERED: Potassium Chloride Elixir 20 MEQ/15 ML UDC PO ONE (17:00)
[2021-10-26] MEDS: QUEtiapine Fumarate 25 MG TABLET PO SCH (20:54)
[2021-10-26 22:40] LABS: Fluid Source for Albumin PERITONEAL FL
[2021-10-27 05:42] LABS: Immature Granulocytes % 0.2 % (0-4); Red Cell Distribution Width 16.8 % (11.5-14.5)
[2021-10-27 05:44] LABS: Basophils # 0.1 K/mcL (0.0-0.2); Basophils % 0.8 %; Eosinophils # 0.2 K/mcL (0.0-0.6); Eosinophils % 3.3 %; Hematocrit 39.5 % (37.5-50.1); Hemoglobin 13.3 g/dL (12.9-16.9); Immature Platelets 3.2 % (1.1-6.1); Lymphocytes # 1.1 K/mcL (0.6-4.6); Lymphocytes % 16.7 %; Mean Corpuscular HGB Conc 33.7 g/dL (31.6-35.5); Mean Corpuscular Hemoglobin 31.4 pg (28.0-33.3); Mean Corpuscular Volume 93.4 fL (83.0-100.0); Mean Platelet Volume 10.5 fL (9.4-12.4); Monocytes # 0.7 K/mcL (0.0-1.3); Monocytes % 10.8 %; Neutrophils # 4.5 K/mcL (1.6-8.9); Platelet Count 129 K/mcL (140-400); Red Blood Count 4.23 M/mcL (4.19-5.50); Segmented Neutrophils % 68.2 %; White Blood Count 6.6 K/mcL (4.3-11.1)
[2021-10-27 06:01] LABS: BUN/Creatinine Ratio 17 (6-26); Blood Urea Nitrogen 18 mg/dL (8-23); Calcium 9.1 mg/dL (8.6-10.3); Carbon Dioxide 25 mEq/L (23-29); Chloride 109 mEq/L (98-107); Glucose 87 mg/dL (70-105); Magnesium 1.8 mg/dL (1.6-2.6); Osmolality,Calculated 293 (280-300); Sodium 141 mEq/L (136-145); eGFR For African Americans > 60 (> 60); eGFR For Non-African Americans > 60 (> 60)
[2021-10-27] MEDS: Cholecalciferol (D-3) 1,000 UNIT (25MCG) TABLET PO SCH (08:59)
[2021-10-27] MEDS: Finasteride 5 MG TABLET PO SCH (08:59)
[2021-10-27] MEDS: Potassium Chloride Elixir 20 MEQ/15 ML UDC PO SCH (08:59)
[2021-10-27] MEDS: Lactulose Oral Soln 20 GM/30 ML UDC PO SCH ×2 (08:59→21:19)
[2021-10-27] MEDS: amLODIPine 5 MG TABLET PO SCH (08:59)
[2021-10-27] MEDS: Aspirin Enteric Coated 81 MG Tablet PO SCH (08:59)
[2021-10-27] MEDS: cefTRIAXone 1,000 MG in 0.9 % Sodium Chloride Mini Bag 100 ML IVPB SCH (09:00)
[2021-10-27] MEDS: QUEtiapine Fumarate 25 MG TABLET PO SCH (21:18)
[2021-10-28 03:29] LABS: Basophils % 0.6 %; Eosinophils # 0.2 K/mcL (0.0-0.6); Eosinophils % 3.3 %; Hematocrit 36.9 % (37.5-50.1); Hemoglobin 12.3 g/dL (12.9-16.9); Immature Granulocytes % 0.3 % (0-4); Lymphocytes # 1.2 K/mcL (0.6-4.6); Mean Corpuscular HGB Conc 33.3 g/dL (31.6-35.5); Mean Corpuscular Hemoglobin 30.9 pg (28.0-33.3); Mean Corpuscular Volume 92.7 fL (83.0-100.0); Mean Platelet Volume 11.2 fL (9.4-12.4); Monocytes # 0.7 K/mcL (0.0-1.3); Monocytes % 9.6 %; Neutrophils # 4.8 K/mcL (1.6-8.9); Platelet Count 129 K/mcL (140-400); Red Blood Count 3.98 M/mcL (4.19-5.50); Red Cell Distribution Width 16.9 % (11.5-14.5); Segmented Neutrophils % 69.2 %; White Blood Count 6.9 K/mcL (4.3-11.1)
[2021-10-28 04:08] LABS: BUN/Creatinine Ratio 19 (6-26); Blood Urea Nitrogen 22 mg/dL (8-23); Calcium 9.2 mg/dL (8.6-10.3); Carbon Dioxide 21 mEq/L (23-29); Chloride 109 mEq/L (98-107); Glucose 81 mg/dL (70-105); Magnesium 1.9 mg/dL (1.6-2.6); Osmolality,Calculated 288 (280-300); Potassium 4.3 mEq/L (3.5-5.1); Sodium 138 mEq/L (136-145); eGFR For African Americans > 60 (> 60); eGFR For Non-African Americans > 60 (> 60)
[2021-10-28 05:36] LABS: Hepatitis B Surface Antigen Nonreactive (Nonreactive)
[2021-10-28 06:05] LABS: Hepatitis A Antibody IgM Nonreactive (Nonreactive)
[2021-10-28] MEDS: Finasteride 5 MG TABLET PO SCH (09:30)
[2021-10-28] MEDS: Aspirin Enteric Coated 81 MG Tablet PO SCH (09:30)
[2021-10-28] MEDS: Cholecalciferol (D-3) 1,000 UNIT (25MCG) TABLET PO SCH (09:30)
[2021-10-28] MEDS: amLODIPine 5 MG TABLET PO SCH (09:31)
[2021-10-28] MEDS: Potassium Chloride Elixir 20 MEQ/15 ML UDC PO SCH (09:31)
[2021-10-28] MEDS: cefTRIAXone 1,000 MG in 0.9 % Sodium Chloride Mini Bag 100 ML IVPB SCH (09:31)
[2021-10-28] MEDS: Lactulose Oral Soln 20 GM/30 ML UDC PO SCH ×2 (09:31→21:35)
[2021-10-28] MEDS: QUEtiapine Fumarate 25 MG TABLET PO SCH (21:35)
[2021-10-29 04:54] LABS: Basophils % 0.6 %; Eosinophils # 0.2 K/mcL (0.0-0.6); Eosinophils % 3.3 %; Hematocrit 38.2 % (37.5-50.1); Hemoglobin 12.5 g/dL (12.9-16.9); Immature Granulocytes % 0.2 % (0-4); Lymphocytes # 0.6 K/mcL (0.6-4.6); Lymphocytes % 10.8 %; Mean Corpuscular HGB Conc 32.7 g/dL (31.6-35.5); Mean Corpuscular Hemoglobin 30.7 pg (28.0-33.3); Mean Corpuscular Volume 93.9 fL (83.0-100.0); Mean Platelet Volume 11.1 fL (9.4-12.4); Monocytes # 0.5 K/mcL (0.0-1.3); Monocytes % 9.2 %; Neutrophils # 3.9 K/mcL (1.6-8.9); Platelet Count 131 K/mcL (140-400); Red Blood Count 4.07 M/mcL (4.19-5.50); Red Cell Distribution Width 16.7 % (11.5-14.5); Segmented Neutrophils % 75.9 %; White Blood Count 5.1 K/mcL (4.3-11.1)
[2021-10-29 05:10] LABS: BUN/Creatinine Ratio 20 (6-26); Blood Urea Nitrogen 23 mg/dL (8-23); Calcium 9.2 mg/dL (8.6-10.3); Carbon Dioxide 29 mEq/L (23-29); Chloride 104 mEq/L (98-107); Glucose 80 mg/dL (70-105); Magnesium 1.8 mg/dL (1.6-2.6); Osmolality,Calculated 289 (280-300); Sodium 138 mEq/L (136-145); eGFR For African Americans > 60 (> 60); eGFR For Non-African Americans > 60 (> 60)
[2021-10-29] MEDS: Cholecalciferol (D-3) 1,000 UNIT (25MCG) TABLET PO SCH (08:35)
[2021-10-29] MEDS: Finasteride 5 MG TABLET PO SCH (08:35)
[2021-10-29] MEDS: Aspirin Enteric Coated 81 MG Tablet PO SCH (08:35)
[2021-10-29] MEDS: Potassium Chloride Elixir 20 MEQ/15 ML UDC PO SCH (08:36)
[2021-10-29] MEDS: cefTRIAXone 1,000 MG in 0.9 % Sodium Chloride Mini Bag 100 ML IVPB SCH (08:36)
[2021-10-29] MEDS: Lactulose Oral Soln 20 GM/30 ML UDC PO SCH ×2 (08:36→19:43)
[2021-10-29] MEDS: amLODIPine 5 MG TABLET PO SCH (08:36)
[2021-10-29] MEDS: QUEtiapine Fumarate 25 MG TABLET PO SCH (19:42)
[2021-10-30] MEDS: Finasteride 5 MG TABLET PO SCH (08:28)
[2021-10-30] MEDS: Aspirin Enteric Coated 81 MG Tablet PO SCH (08:28)
[2021-10-30] MEDS: Lactulose Oral Soln 20 GM/30 ML UDC PO SCH ×2 (08:29→20:43)
[2021-10-30] MEDS: cefTRIAXone 1,000 MG in 0.9 % Sodium Chloride Mini Bag 100 ML IVPB SCH (08:29)
[2021-10-30] MEDS: Cholecalciferol (D-3) 1,000 UNIT (25MCG) TABLET PO SCH (08:29)
[2021-10-30] MEDS: amLODIPine 5 MG TABLET PO SCH (08:29)
[2021-10-30 10:13] LABS: HCV Quant Interpretation NOT DETECTED (Not Detected); HCV Quant Log NOT DETECTED log IU/mL
[2021-10-30] MEDS: QUEtiapine Fumarate 25 MG TABLET PO SCH (20:43)
[2021-10-31] MEDS: Lactulose Oral Soln 20 GM/30 ML UDC PO SCH (08:43)
[2021-10-31] MEDS: Aspirin Enteric Coated 81 MG Tablet PO SCH (08:43)
[2021-10-31] MEDS: Cholecalciferol (D-3) 1,000 UNIT (25MCG) TABLET PO SCH (08:43)
[2021-10-31] MEDS: Finasteride 5 MG TABLET PO SCH (08:43)
[2021-10-31] MEDS: amLODIPine 5 MG TABLET PO SCH (08:43)
[2021-10-31 10:08] LABS: Adenovirus Not Detected (Not Detect); Coronavirus 229E Not Detected (Not Detect); Coronavirus HKU1 Not Detected (Not Detect); Coronavirus NL63 Not Detected (Not Detect); Coronavirus OC43 Not Detected (Not Detect)
[2021-10-31 10:12] LABS: Bordetella Pertussis Not Detected (Not Detect); Chlamydophila pneumoniae Not Detected (Not Detect); Human Metapneumovirus Not Detected (Not Detect); Human Rhinovirus/Enterovirus Not Detected (Not Detect); Influenza A Subtype 2009 H1 Not Detected (Not Detect); Influenza B Not Detected (Not Detect); Mycoplasma pneumoniae Not Detected (Not Detect); Parainfluenza Virus 1 Not Detected (Not Detect); Parainfluenza Virus 2 Not Detected (Not Detect); Parainfluenza Virus 3 Not Detected (Not Detect); Parainfluenza Virus 4 Not Detected (Not Detect); Respiratory Syncytial Virus Not Detected (Not Detect); SARS-CoV-2 DETECTED (Not Detect)
[2021-10-31 11:50] VITALS: BP 135/75; PULSE 58; TEMP 97.4; O2SAT 97
== END 2021-10-31 13:36 | DRG 432 ==
LOC: 2ANU 17:11 → EMEROOARM 17:11 → SUATTDRO 20:56 → 2ANU 21:46 → SUATTDRO 10-25 13:38
PROVIDERS: ADMIT Internal Medicine; ATTEND Internal Medicine